=== PATIENT | female | born 2000 | race Asian ===

== ENCOUNTER 2021-12-14 16:02 | Outpatient (CLI) | payer OTHER, SELFPAY ==
[2021-12-14 22:56] LABS: Chlamydia DNA Amplified* NOT DETECTED (No Detected); GC DNA Amplified* NOT DETECTED (No Detected)
== END 2021-12-14 16:03 | disposition home or self-care (01) ==
LOC: LKVREF 16:03
PROVIDERS: Visit Provider Student in an Organized Health Care Education/Training Program
DX: N76.0 Acute vaginitis (principal); N39.0 Urinary tract infection, site not specified
CPT/HCPCS: 87086; 87491; 87591

== ENCOUNTER 2022-01-17 15:41 | Outpatient (CLI) | payer OTHER, SELFPAY ==
[2022-01-17 20:48] LABS: Albumin* 4.6 g/dL (3.3-5.0); Chloride* 105 mmol/L (96-114)
[2022-01-17 20:49] LABS: Potassium* 4.1 mmol/L (3.6-5.1); Sodium* 138 mmol/L (135-149)
[2022-01-17 20:51] LABS: Aspartate Amino Transferase* 25 U/L (12-35); Bilirubin Total* 0.6 mg/dL (0.1-1.5); Blood Urea Nitrogen* 9 mg/dL (5-24); Carbon Dioxide* 28 mmol/L (20-32); Cholesterol* 163 mg/dL (90-199); Creatinine* 0.5 mg/dL (0.5-1.5); Estimated Glomerular Filt Rate 138 ml/min; Glucose* 87 mg/dL (60-115); Total Protein* 7.4 g/dL (6.0-8.3)
[2022-01-17 20:52] LABS: Alanine Aminotransferase* 16 U/L (4-35); Alkaline Phosphatase* 63 U/L (40-150); Calcium* 9.4 mg/dL (8.4-10.6); HDL Cholesterol* 69 mg/dL (>=50); LDL Cholesterol Calculated 74 mg/dL (<100); Triglycerides* 99 mg/dL (40-149)
[2022-01-17 21:41] LABS: Vitamin B12* 459 pg/mL (243-894)
[2022-01-17 23:10] LABS: Vitamin D 25 Hydroxy* 15 ng/mL (30-80)
[2022-01-17 23:24] LABS: TSH With Reflex to FT4* 0.583 uIU/mL (0.270-4.200)
== END 2022-01-17 15:42 | disposition home or self-care (01) ==
PROVIDERS: PCP Family Medicine; Visit Provider Family Medicine
DX: Z01.419 Encounter for gynecological examination (general) (routine) without abnormal findings (principal); R53.83 Other fatigue; F32.A Depression, unspecified; R79.89 Other specified abnormal findings of blood chemistry; Z13.6 Encounter for screening for cardiovascular disorders
CPT/HCPCS: 80053; 80061; 82306; 82607; 84443